=== PATIENT | female | born 1960 | race African-American/Black ===

== ENCOUNTER 2020-11-29 08:35 | Outpatient (CLI) | payer OTHER, SELFPAY ==
--- NOTE | ~2020-11-29 | US_ITS ---
US right upper quadrant INDICATION: Gallstones PROCEDURE: Realtime right upper abdominal ultrasound. COMPARISON: Ultrasound dated 07/31/2019 FINDINGS: The pancreas is normal without focal mass or pancreatic ductal dilation. Liver echotexture is heterogeneous, consistent with fatty infiltration. There is normal directional flow in the killian l vein. There are gallstones. Common bile duct measures 4.5 mm. No sonographic Mcbride's sign. IMPRESSION: 1: Cholelithiasis. 2: Hepatic steatosis. Reviewed, dictated and finalized at location A.
== END 2020-11-29 08:36 | disposition home or self-care (01) ==
PROVIDERS: PCP Internal Medicine; Visit Provider Internal Medicine
DX: K80.20 Calculus of gallbladder without cholecystitis without obstruction (principal); K76.0 Fatty (change of) liver, not elsewhere classified
CPT/HCPCS: 76705